=== PATIENT | female | born 1990 | race Caucasian/White ===

== ENCOUNTER 2024-08-12 20:20 | Emergency (ER) | payer BC, SELFPAY ==
[2024-08-12 20:20] VITALS: BMI 32.6
[2024-08-12 20:29] VITALS: BP 153/94
[2024-08-12 20:50] LABS: Urine Albumin 1+ (Neg - Trace); Urine Bilirubin Negative (Negative); Urine Character Clear (Clear); Urine Color Yellow; Urine Glucose Negative (Negative); Urine Ketone Negative (Negative); Urine Leukocyte Negative (Negative); Urine Nitrite Negative (Negative); Urine Occult Blood 3+ (Negative); Urine Specific Gravity 1.015 (<1.030); Urine Urobilinogen 1+ (Neg - 1+)
[2024-08-12 20:52] LABS: Hematocrit 40.1 % (37.0-47.0); Hemoglobin 13.6 g/dL (12.0-16.0); Mean Corp Hgb Conc. 33.9 g/dL (33.0-37.0); Mean Corpuscular Hgb 29.9 pg (27.0-31.0); Mean Corpuscular Volume 88.1 fL (81.0-99.0); Mean Platelet Volume 8.6 fL (7.4-10.4); Platelet Count 366 10^3/uL (130-400); Red Blood Cell Count 4.55 10^6/uL (4.20-5.40); Red Cell Dist. Width 12.3 % (11.5-14.5); White Blood Cell Count 14.3 10^3/uL (4.8-10.8)
[2024-08-12 20:58] LABS: Urine Red Blood Cell 16-20 /HPF (0-2); Urine White Cell 0-2 /HPF (0-5)
[2024-08-12 21:08] LABS: % Basophils 0.3 % (0-2); % Eosinophils 0.9 % (0-6); % Immature Granulocytes 0.2 % (0-0.5); % Lymphocytes 31.4 % (20.5-51.1); % Monocytes 7.6 % (1.7-9.3); % Neutrophils 59.6 % (42.2-75.2); Absolute Eosinophils 0.1 10^3/uL (0-0.7); Absolute Lymphocytes 4.5 10^3/uL (1.2-3.4); Absolute Monocytes 1.1 10^3/uL (0.1-0.6); Absolute Neutrophils 8.5 10^3/uL (1.4-6.5); Nucleated Red Blood Cells % 0 %
[2024-08-12 21:10] LABS: ALT (SGPT) 32 U/L (0-35); AST (SGOT) 22 U/L (14-36); Albumin 4.2 g/dl (3.5-5.0); Alkaline Phosphatase 54 U/L (38-126); Blood Urea Nitrogen 17 mg/dl (7-17); Calcium 9.5 mg/dl (8.4-10.2); Carbon Dioxide 26 mmol/L (22-30); Chloride 101 mmol/L (98-107); Glucose 88 mg/dl (70-99); Lipase 185 U/L (23-300); Potassium 4.2 mmol/L (3.5-5.1); Sodium 136 mmol/L (135-145); Total Bilirubin 0.9 mg/dl (0.2-1.3); Total Protein 7.3 g/dl (6.3-8.2); eGFR > 60.00
[2024-08-12] MEDS: TORADOL 15 MG IV (23:28)
[2024-08-12] MEDS: NSS 1000 IV (23:29)
[2024-08-12 23:31] VITALS: BP 140/93
--- NOTE | 2024-08-12 23:37 | ED.GENMED ---
History of Present Illness
General
Chief Complaint: Flank Pain
Source: patient
Exam Limitations: none
Time Seen by Provider: 08/12/24 22:06
History of Present Illness
History of Present Illness:
This is a 34-year-old female presents with left sided pain. She reports it started in her her flank but also around the left lower abdomen. She states that for started with some bilateral lower abdominal pain. Patient denies dysuria. No
hematuria. No vaginal discharge or bleeding. Patient does report some nausea as well as vomiting and feeling achy. Patient states her symptoms started on . Today the symptoms persisted but worsened. No chest pain. No shortness of
breath. No history of kidney stones.
Past History
Past History
ED Past Medical History: Other (Diverticulitis, irritable bowel syndrome, anxiety, depression)
Phy Exam
Physical Exam
Physical Exam:
CONSTITUTIONAL Patient alert and oriented to person, place and time. Well-appearing. Vital signs reviewed.
HEAD atraumatic, normocephalic.
EYES eyelids normal to inspection, Extraocular muscles intact, Conjunctiva normal, Sclera normal.
NECK normal range of motion, Trachea midline, no jugular venous distention.
RESPIRATORY CHEST No respiratory distress noted, Chest expansion equal, Bilateral breath sounds clear.
CARDIOVASCULAR regular rate and rhythm, Heart sounds normal.
ABDOMEN mild left lower quadrant tenderness, no distention.
BACK normal inspection, no obvious deformities, no real CVA tenderness
UPPER EXTREMITY range of motion normal, Motor strength normal, no cyanosis, no edema.
LOWER EXTREMITY range of motion normal, Motor strength normal, no cyanosis, no edema.
NEURO Speech normal, No focal motor deficits, Syed coma scale 15, Memory normal, Cranial Nerves intact to screening exam.
SKIN skin warm, dry, and normal in color.
Course
Orders/Labs/Results
Orders:
Orders
08/12/24 20:35
IV Insert/Care/Rem.- Treatment PRN
Straight cath- Treatment ONCE
08/12/24 20:42
Complete Blood Count/With Diff Urgent
Comprehensive Metabolic Panel Urgent
HCG, Urine Qualitative Screen Urgent
Date Specimen was Collected: 08/12/24
Time Specimen was Collected: 20:35
Comment: ADD ON
Lipase Urgent
Urinalysis Reflex To Culture Urgent
Date Specimen was Collected: 08/12/24
Time Specimen was Collected: 20:35
Urine Microscopic Reflex Cult Urgent
08/12/24 22:56
0.9% Sodium Chloride 1000 ml [Nss] 1,000 ml IV BOLUS
Ketorolac [Toradol] 15 mg IV NOW STA
08/12/24 23:37
Add On- LAB Urgent
Tests Added?: urine hcg
08/13/24 00:02
CT Abd/pelvis W Iv Cont Urgent
Reason For Exam: LLQ pain, h/o diverticulitis, low grade temp
08/13/24 01:30
Amoxicillin 875 mg/Clav 125 mg [Augmentin 875 mg/125 mg] 1 tablet PO NOW STA
Abnormal Lab Results
08/12/24
20:42
WBC 14.3 H 10^3/uL
(4.8-10.8)
Absolute Neuts (auto) 8.5 H 10^3/uL
(1.4-6.5)
Absolute Lymphs (auto) 4.5 H 10^3/uL
(1.2-3.4)
Absolute Monos (auto) 1.1 H 10^3/uL
(0.1-0.6)
Ur Occult Blood Reflex 3+ A
(Negative)
Urine RBC 16-20 A /HPF
(0-2)
Urine Albumin (Reflex) 1+ A
(Neg - Trace)
08/12/24 20:42
08/12/24 20:42
Vital Signs
Initial and Last Documented VS:
Initial Vital Signs
Temp Pulse Resp BP Pulse Ox
99.1 F 85 20 153/94 97
08/12/24 20:29 08/12/24 20:29 08/12/24 20:29 08/12/24 20:29 08/12/24 20:29
Last Documented Vital Signs
Temp Pulse Resp BP Pulse Ox
99.1 F 85 20 153/94 99
08/12/24 20:29 08/12/24 20:29 08/12/24 20:29 08/12/24 20:29 08/12/24 22:06
MDM/Problems Addressed
MDM/Problems Addressed:
Abdominal pain, leukocytosis
*Radiology
Radiology exam reviewed: preliminary read by ED provider (No free air noted, suspect diverticular disease)
*Pulse Oximetry
Patient hypoxic: no
*Critical Care Note
Total Time (30-74mins, 75-104mins- exclusive of procedures): Not Applicable
Data Reviewed
Source: patient
Further Testing Considered But Not Given:
Consider noncontrast study to rule out stone but later mild abdominal tenderness and history, rule out diverticulitis
Patient Management
Escalation/DeEscalation of care consider admission/obs:
Acute diverticulitis without complication on CT. Leukocytosis noted. I think she is stable for outpatient management. Cover with antibiotics.
ED Attending Note
-
Portions of this chart may have been created with voice recognition software.� Occasional wrong word or��sound alike� substitutions may have occurred due to the inherent limitations of voice recognition software.
Discharge Plan
Departure
Patient Disposition: Home (Routine Discharge)
Date of Disposition: 08/13/24
Time of Disposition: 01:31
Patient with high blood pressure during this ER visit?: Yes
Discharge Problem:
Acute diverticulitis
Instructions: Diverticulitis
Prescriptions:
New
amoxicillin-pot clavulanate 875-125 mg tablet
1 tab PO BID Qty: 20 0RF
Referrals:
NONE,* [Family Provider] -
Activity Restrictions/Additional Instructions:
Return immediately for fevers, intractable pain, intractable vomiting, or any other concerns. Please drink plenty fluids and stick to a low residue diet. Please see your doctor or GI specialist in the next 3 days for follow-up and reevaluation
Interventions
Interventions:
*Risk Screen - Suicide Last Done: 08/12/24 20:29
*General Assessment Last Done: 08/12/24 20:29
*Neglect/Abuse Screening Last Done: 08/12/24 20:29
*ED- Fall Risk Assessment Last Done: 08/12/24 21:56
*ED COVID-19 Vaccine History Last Done: 08/12/24 20:34
YP-Degpff-Mbhocufhnt Assessment Last Done: 08/12/24 22:14
ED-Female Genitourinary Assessment Last Done: 08/12/24 22:14
Discharge Date and Time
Print Language: ICELANDIC
[2024-08-13] VITALS: BP 131/62
[2024-08-13 00:31] LABS: HCG, Urine Qualitative Screen Negative
[2024-08-13] MEDS: MORPHINE SULFATE 4 MG IV (01:41)
[2024-08-13] MEDS: AUGMENTIN 875 MG/125 MG 1 TABLET PO (01:42)
== END 2024-08-13 02:44 | disposition home or self-care (01) ==
LOC: EMR 20:20
PROVIDERS: Emergency Medicine; EMERGENCY PHYSICIAN Emergency Medicine
DX: K57.32 Diverticulitis of large intestine without perforation or abscess without bleeding (principal); R03.0 Elevated blood-pressure reading, without diagnosis of hypertension
CPT/HCPCS: 99285; 96374; 96375; 96361; 74177; 80053; 81003; 81015; 81025; 83690; 85025; Q9967